=== PATIENT | male | born 1940 | race Caucasian/White ===

== ENCOUNTER 2016-11-17 11:25 | Emergency (ER) | payer MEDICARE ==
[2016-11-17] MEDS ORDERED: IPRATROPIUM/ALBUTEROL 0.5-2.5 MG/3 ML AMPUL NEB ONE (12:26)
--- NOTE | 2016-11-17 12:28 | ER Document Report ---
ED Medical Screen (RME) - General Chief Complaint: Shortness Of Breath Stated Complaint: COUGH,SHORTNESS OF BREATH Time seen by provider: 12:25 Mode of Arrival: Wheelchair Information source: Patient TRAVEL OUTSIDE OF THE [place] IN LAST 30 DAYS: No - HPI Patient complains to provider of: fever, cough Onset: Other - 3-4 days Onset/Duration: Gradual, Persistent Quality of pain: Achy Severity: Moderate Pain Level: 3 Associated Symptoms: Body/muscle aches, Chills, Cough (productive), Fever, Nausea, Shortness of breath Exacerbated by: Movement, Coughing, Deep breathing Relieved by: Denies Similar symptoms previously: No Recently seen / treated by doctor: Yes - sent from PMD Notes: 11/17/16 12:26 Patient is 76-year-old male with history of coronary artery disease, [place] 2, diabetes, hypertension, who presents to the emergency room with a productive cough 3-4 days and a fever of 103 yesterday evening, as well as shortness of breath, and nausea, he was sent from his primary care provider's office to rule out pneumonia - Related Data Allergies/Adverse Reactions: No Known Allergies Allergy (Unverified 11/17/16 11:35) Past Medical History Renal/ Medical History: Denies: Hx Peritoneal Dialysis Physical Exam - Vital signs Vitals: Temp Pulse Resp BP Pulse Ox 98.5 F 114 H 22 H 115/79 96 11/17/16 11:32 11/17/16 11:32 11/17/16 11:32 11/17/16 11:32 11/17/16 11:32 Course - Vital Signs Vital signs: Temp Pulse Resp BP Pulse Ox 98.5 F 114 H 22 H 115/79 96 11/17/16 11:32 11/17/16 11:32 11/17/16 11:32 11/17/16 11:32 11/17/16 11:32
--- NOTE | 2016-11-17 12:44 | ER Document Report ---
ED Respiratory Problem - General Chief Complaint: Shortness Of Breath Stated Complaint: COUGH,SHORTNESS OF BREATH Mode of Arrival: Wheelchair Information source: Patient TRAVEL OUTSIDE OF THE [place] IN LAST 30 DAYS: No - HPI Patient complains to provider of: Cough Onset: Other - 3 DAYS Duration: Intermittent episodes Initiating Event: URI Quality of pain: Other - SORENESS Severity: Moderate Context: denies: Hx asthma, Hx CHF, Hx COPD, Recent cardiac event, Recent long distance trvl, Recent immobilization, Recent surgery, Smoker Chest pain/discomfort: Worse with deep breaths - COSTAL MARGINS Cough: Productive Sputum amount: Moderate Sputum color: Green Sputum consistency: Mucoid Associated symptoms: Chills, Cough, Extertional dyspnea, Fever, Orthopnea, Sweaty Similar symptoms previously: Yes - W/ PNEUMONIA Recently seen / treated by doctor: Yes - PCP, THIS A.M., REFERRED TO E.D. - Related Data Allergies/Adverse Reactions: No Known Allergies Allergy (Unverified 11/17/16 11:35) Past Medical History - General Information source: Patient - Social History Smoking Status: Never Smoker Cigarette use (# per day): No Chew tobacco use (# tins/day): No Smoking Education Provided: No Frequency of alcohol use: None Drug Abuse: None Lives with: Spouse/Significant other Family History: Hypertension Patient has suicidal ideation: No Patient has homicidal ideation: No - Past Medical History Cardiac Medical History: Reports: Hx Coronary Artery Disease, Hx Hypertension Pulmonary Medical History: Reports: None EENT Medical History: Reports: None Neurological Medical History: Reports: None Endocrine Medical History: Reports: Hx Diabetes Mellitus Type 1 Renal/ Medical History: Reports: None. Denies: Hx Peritoneal Dialysis Malignancy Medical History: Reports None GI Medical History: Reports: None Musculoskeltal Medical History: Reports None Psychiatric Medical History: Reports: None Surgical Hx: Negative Past Surgical History: Reports: Hx Pacemaker Review of Systems - Review of Systems Constitutional: Chills, Diaphoresis, Fever, Weakness EENT: No symptoms reported Cardiovascular: No symptoms reported Respiratory: See HPI Gastrointestinal: No symptoms reported Genitourinary: No symptoms reported Musculoskeletal: No symptoms reported Skin: No symptoms reported Neurological/Psychological: No symptoms reported Physical Exam - Vital signs Vitals: Temp Pulse Resp BP Pulse Ox 98.5 F 114 H 22 H 115/79 96 11/17/16 11:32 11/17/16 11:32 11/17/16 11:32 11/17/16 11:32 11/17/16 11:32 Interpretation: Tachycardic, Tachypneic. No: Hypoxic, Febrile - General General appearance: Appears well, Alert In distress: None - HEENT Head: Normocephalic Eyes: Normal Conjunctiva: Normal Ears: Normal Nasal: Normal Mouth/Lips: Normal Mucous membranes: Normal Pharynx: Normal Neck: Normal - Respiratory Respiratory status: No respiratory distress Breath sounds: Rhonchi - INSPIRATORY, Wheezing - MILD EXP., ALL DIEZ - Cardiovascular Rhythm: Regular, Tachycardia Heart sounds: Normal auscultation Murmur: No - Abdominal Inspection: Normal Distension: No distension Bowel sounds: Normal - Back Back: Normal - Extremities General upper extremity: Normal inspection General lower extremity: Normal inspection - Neurological Neuro grossly intact: Yes Cognition: Normal Orientation: AAOx4 - Psychological Associated symptoms: Normal affect, Normal mood - Skin Skin Temperature: Warm Skin Moisture: Dry Skin Color: Normal Skin Turgor: Elastic Course - Vital Signs Vital signs: Temp Pulse Resp BP Pulse Ox 98.4 F 114 H 21 H 125/86 H 94 11/17/16 17:01 11/17/16 11:32 11/17/16 17:01 11/17/16 17:01 11/17/16 17:01 - Laboratory Result Diagrams: 11/17/16 12:35 11/17/16 12:35 Laboratory results interpreted by me: 11/17/16 11/17/16 11/17/16 12:15 12:35 12:35 RDW 15.5 H Plt Count 111 L Lymphocytes % 11.3 L BUN 29 H Creatinine 1.54 H Est GFR ( Amer) 53 L Est GFR (Non-Af Amer) 44 L Glucose 161 H POC Glucose 148 H Total Bilirubin 1.5 H Direct Bilirubin 0.6 H Alkaline Phosphatase 199 H Urine Glucose (UA) Urine Blood 11/17/16 15:50 RDW Plt Count Lymphocytes % BUN Creatinine Est GFR ( Amer) Est GFR (Non-Af Amer) Glucose POC Glucose Total Bilirubin Direct Bilirubin Alkaline Phosphatase Urine Glucose (UA) 50 H Urine Blood MODERATE H - Diagnostic Test Radiology reviewed: Image reviewed, Reports reviewed - EKG Interpretation by Me EKG shows normal: abnormal: Sinus rhythm - PACER, QRS Complexes Rate: Normal [place]/QRS: LBBB Discharge - Discharge Clinical Impression: Pneumonia Qualifiers: Pneumonia type: due to unspecified organism Laterality: left Lung location: lower lobe of lung Qualified Code(s): J18.1 - Lobar pneumonia, unspecified organism Chronic renal insufficiency Qualifiers: Chronic kidney disease stage: unspecified stage Qualified Code(s): N18.9 - Chronic kidney disease, unspecified Condition: Stable Disposition: HOME, SELF-CARE Instructions: Pneumonia ([facility]), Intravenous (IV) Fluids ([facility]), Rocephin ([facility]), Azithromycin ([facility]), Inhaled Bronchodilators ([facility]) Additional Instructions: REST, DRINK PLENTY OF FLUIDS. MEDS DIRECTED. FOLLOW UP WITH YOUR PRIMARY CARE PROVIDER IN 3-5 DAYS. RETURN TO E.R. IF YOU GET WORSE, ANY TIME. Prescriptions: Albuterol Sulfate [Proair HFA] 2 inh IH Q4 PRN #1 [email or web address] PRN Reason: For Wheezing Azithromycin [Zithromax 250 mg Tablet] 250 mg PO ASDIR PRN #6 tablet PRN Reason: Referrals: DORY ALMONTE, R[facility] [Primary Care Provider] - Follow up in 3-5 days
[2016-11-17 13:08] LABS: ABSOLUTE LYMPHOCYTES (AUTO) 0.9 10^3/uL (0.5-4.7); ABSOLUTE MONOCYTES (AUTO) 0.9 10^3/uL (0.1-1.4); ABSOLUTE NEUT (AUTO) 6.4 10^3/uL (1.7-8.2); BASOPHILS % (AUTO) 0.4 % (0-2); EOSINOPHILS % (AUTO) 0.2 % (0-6); HEMATOCRIT 43.2 % (37.9-51.0); HEMOGLOBIN 14.7 g/dL (13.5-17.0); HGB HCT DIFFERENCE 0.9; LYMPHOCYTES % (AUTO) 11.3 % (13-45); MEAN CORPUSCULAR HEMOGLOBIN 30.2 pg (27.0-33.4); MEAN CORPUSCULAR VOLUME 89 fl (80-97); MONOCYTES % (AUTO) 10.4 % (3-13); RED BLOOD COUNT 4.86 10^6/uL (4.35-5.55); RED CELL DISTRIBUTION WIDTH 15.5 % (11.5-14.0); SEGMENTED NEUTROPHILS % (AUTO) 77.7 % (42-78); WHITE BLOOD COUNT 8.2 10^3/uL (4.0-10.5)
[2016-11-17] MEDS ORDERED: DEXAMETHASONE SOD PHOS INJ 10 MG/1 ML VIAL IV ONE (13:11)
[2016-11-17] MEDS ORDERED: ALBUTEROL SULFATE 0.083% NEB 2.5 MG/3 ML AMPUL NEB ONE (13:17)
--- NOTE | 2016-11-17 13:24 | EKG REPORT ---
SEVERITY:- ABNORMAL ECG - AFIB/FLUT AND V-PACED COMPLEXES LEFT BUNDLE BRANCH BLOCK : Confirmed by: Kathryn Bañuelos MD 17-Nov-2016 13:23:28
[2016-11-17 13:33] LABS: ALANINE AMINOTRANSFERASE 37 U/L (21-72); ALBUMIN 4.3 g/dL (3.5-5.0); ALKALINE PHOSPHATASE 199 U/L (38-126); ANION GAP 14 (5-19); ASPARTATE AMINO TRANSFERASE 33 U/L (17-59); BILIRUBIN,DIRECT 0.6 mg/dL (0.0-0.4); BILIRUBIN,TOTAL 1.5 mg/dL (0.2-1.3); BLOOD UREA NITROGEN 29 mg/dL (7-20); CALCIUM 9.6 mg/dL (8.4-10.2); CARBON DIOXIDE 26 mmol/L (22-30); CHLORIDE 98 mmol/L (98-107); CREATINE KINASE 169 U/L (55-170); CREATININE RESULT 1.54 mg/dL (0.52-1.25); GLUCOSE 161 mg/dL (75-110); POTASSIUM 4.5 mmol/L (3.6-5.0); SODIUM 137.7 mmol/L (137-145); TOTAL PROTEIN 7.7 g/dL (6.3-8.2)
[2016-11-17 13:41] LABS: CREATINE KINASE MB 1.13 ng/mL (<4.55)
[2016-11-17 13:42] LABS: TROPONIN I < 0.012 ng/mL
[2016-11-17] MEDS ORDERED: CEFTRIAXONE 1 GM/D5W RTU 50 ML IV ONE (14:15)
[2016-11-17] MEDS ORDERED: NORMAL SALINE 1000 ML 1,000 ML IV ONE (14:34)
[2016-11-17 17:10] LABS: APPEARANCE,URINE CLEAR; BILIRUBIN,URINE NEGATIVE (NEGATIVE); GLUCOSE, URINE 50 mg/dL (NEGATIVE); KETONES,URINE NEGATIVE (NEGATIVE); LEUKOCYTE ESTERASE,URINE NEGATIVE (NEGATIVE); NITRITE,URINE NEGATIVE (NEGATIVE); PROTEIN,URINE NEGATIVE (NEGATIVE); URINE SPECIFIC GRAVITY 1.008; UROBILINOGEN,URINE NEGATIVE mg/dL (<2.0)
[2016-11-17 17:11] VITALS: BP 125/86
== END 2016-11-17 17:18 | disposition home or self-care (01) ==
LOC: ER 11:25
DX: J18.1 Lobar pneumonia, unspecified organism (principal); I12.9 Hypertensive chronic kidney disease with stage 1 through stage 4 chronic kidney disease, or unspecified chronic kidney disease; E10.22 Type 1 diabetes mellitus with diabetic chronic kidney disease; N18.9 Chronic kidney disease, unspecified; I44.7 Left bundle-branch block, unspecified; I25.10 Atherosclerotic heart disease of native coronary artery without angina pectoris; R05 Cough; R61 Generalized hyperhidrosis; R06.01 Orthopnea; R53.1 Weakness; R50.9 Fever, unspecified; R00.0 Tachycardia, unspecified; Z95.0 Presence of cardiac pacemaker
CPT/HCPCS: 93005; 94640 ×2; 99285; 96365; 36415; 87040; 87070; 87086; 87205; 82553; 82962; 82550; 85025; 87077; 87088; 80053; 81001; 84484; 87186; 83605; 71020; 93010; J7030; J0696; A9270 ×2; J7620

== ENCOUNTER → 2017-01-05 | Outpatient (CLI) | payer MEDICARE ==
--- NOTE | 2017-01-05 11:15 | RADIOLOGY REPORT (SQ) ---
EXAM DESCRIPTION: CHEST PA/LATERAL COMPLETED DATE/TIME: 01/05/2017 10:56 am REASON FOR STUDY: PNEUMONIA, UNSPECIFIED ORGANISM COMPARISON: 11/17/2016 EXAM PARAMETERS: NUMBER OF VIEWS: two views TECHNIQUE: Digital Frontal and Lateral radiographic views of the chest acquired. RADIATION DOSE: NA LIMITATIONS: none FINDINGS: LUNGS AND PLEURA: There is mild subsegmental atelectasis in each lung. There is blunting of the left costophrenic angle. MEDIASTINUM AND HILAR STRUCTURES: No masses or contour abnormalities. HEART AND VASCULAR STRUCTURES: Heart normal size. No evidence for failure. BONES: No acute findings. HARDWARE: Pacemaker OTHER: No other significant finding. IMPRESSION: There may be a small left pleural effusion. There is mild subsegmental atelectasis. No localized infiltrate is seen. TECHNICAL DOCUMENTATION: JOB ID: [id number] [employer]- All Rights Reserved
== END ==
LOC: OD 10:32
PROVIDERS: ATTEND Nurse Practitioner
DX: J18.9 Pneumonia, unspecified organism (principal)
CPT/HCPCS: 71020

== ENCOUNTER → 2017-01-29 | Outpatient (CLI) | payer MEDICARE ==
[2017-01-29 08:41] LABS: ALBUMIN 3.9 g/dL (3.5-5.0); ANION GAP 10 (5-19); BLOOD UREA NITROGEN 28 mg/dL (7-20); CALCIUM 9.4 mg/dL (8.4-10.2); CARBON DIOXIDE 27 mmol/L (22-30); CHLORIDE 104 mmol/L (98-107); CREATININE RESULT 1.47 mg/dL (0.52-1.25); GLUCOSE 158 mg/dL (75-110); PHOSPHORUS 3.7 mg/dL (2.5-4.5); POTASSIUM 4.9 mmol/L (3.6-5.0); SODIUM 140.8 mmol/L (137-145)
[2017-01-30 09:38] LABS: CREATININE URINE 96.1 mg/dL (Not Estab.); MICROALBUMIN URINE 24.9 ug/mL (Not Estab.)
[2017-01-31 11:18] LABS: VITAMIN D 25-HYDROXY 28.9 ng/mL (30.0-100.0)
== END ==
LOC: LAB 08:01
PROVIDERS: ATTEND Internal Medicine Nephrology
DX: N18.3 Chronic kidney disease, stage 3 (moderate) (principal); E78.5 Hyperlipidemia, unspecified
CPT/HCPCS: 36415; 80048; 82040; 82043; 82306; 82570; 83970; 84100

== ENCOUNTER → 2017-01-29 | Outpatient (CLI) | payer MEDICARE ==
--- NOTE | 2017-01-29 08:29 | RADIOLOGY REPORT (SQ) ---
EXAM DESCRIPTION: U/S RETROPERITON (RENAL/AORTA) COMPLETED DATE/TIME: 01/29/2017 8:04 am REASON FOR STUDY: CKD III (N18.3) N18.3 CHRONIC KIDNEY DISEASE, STAGE 3 (MODERATE) COMPARISON: None. TECHNIQUE: Dynamic and static grayscale images acquired of the kidneys and bladder and recorded on P ACS. Additional selected color Doppler and spectral images recorded. LIMITATIONS: Large patient FINDINGS: RIGHT KIDNEY: 9.4 cm in length. Normal echogenicity. No solid or suspicious masses. No hy dronephrosis. No calcifications. Mild cortical thinning. LEFT KIDNEY: 9.6 cm in length. Normal echogenicity. No solid or suspicious masses. No hydronephrosis . No calcifications. Mild cortical thinning. BLADDER: No masses. OTHER FINDINGS: No other significant finding. IMPRESSION: Bilateral cortical thinning. No hydronephrosis. TECHNICAL DOCUMENTATION: JOB ID: [id number] [email or web address]- All Rights Reserved
== END ==
LOC: RAD 07:34
PROVIDERS: ATTEND Internal Medicine Nephrology
DX: N18.3 Chronic kidney disease, stage 3 (moderate) (principal)
CPT/HCPCS: 36415; 76770; 80048; 82040; 82043; 82306; 82570; 83970; 84100

== ENCOUNTER → 2018-07-06 | Outpatient (CLI) | payer MEDICARE ==
--- NOTE | 2018-07-06 09:37 | RADIOLOGY REPORT (SQ) ---
EXAM DESCRIPTION: CT ABD/PELVIS ORAL ONLY COMPLETED DATE/TIME: 07/06/2018 9:08 am REASON FOR STUDY: ABD PAIN (R10.9) R10.9 UNSPECIFIED ABDOMINAL PAIN COMPARISON: None. TECHNIQUE: CT scan of the abdomen and pelvis performed without intravenous or oral contrast. Images reviewed with lung, soft tissue, and bone windows. Reconstructed coronal and sagittal MPR images revi ewed. All images stored on PACS. All CT scanners at this facility use dose modulation, iterative reconstruction, and/or weight based d osing when appropriate to reduce radiation dose to as low as reasonably achievable (ALARA). [facility]: Dose Right [facility]: CareDose [facility]: Dose Right [facility]: Teradose 4D [facility]: Smart VUELOGIC RADIATION DOSE: CT Rad equipment meets quality standard of care and radiation dose reduction techniq ues were employed. CTDIvol: 7.6 mGy. DLP: 430 mGy-cm.mGy. LIMITATIONS: None. FINDINGS: LOWER CHEST: Pleural based and parenchymal nodules in the right middle lobe, axial images 1 and 3, series 4. Small bilateral pleural effusion and left base atelectasis. Very small right pl eural effusion and right base atelectasis. Mild bronchiectatic changes in the lower lobes. NON-CONTRASTED LIVER, SPLEEN, ADRENALS: Evaluation limited by lack of IV contrast. No identified sign ificant masses. PANCREAS: No masses. No peripancreatic inflammatory changes. GALLBLADDER: No identified stones by CT criteria. No inflammatory changes to suggest cholecystitis. RIGHT KIDNEY AND URETER: No suspicious masses. Assessment limited by lack of IV contrast. No signif icant calcifications. No hydronephrosis or hydroureter. LEFT KIDNEY AND URETER: Small nonobstructing 2- 3 mm calculus in the midpole of the left kidney. No suspicious masses. Assessment limited by lack of IV contrast. AORTA AND RETROPERITONEUM: Mild atherosclerotic changes involving the abdominal aorta and branch ves sels. IVC filter. No aneurysm. No retroperitoneal masses or adenopathy. BOWEL AND PERITONEAL CAVITY: Colonic diverticulosis without evidence of diverticulitis. No free flu id. APPENDIX: Normal. PELVIS, BLADDER, AND ABDOMINAL WALL: The prostate gland measures 4.6 cm in diameter. Prostatic conc retions. Fat containing right umbilical and inguinal hernias. No free fluid. Bladder normal. BONES: Dextroconvex scoliosis and degenerative changes of the lumbar spine. OTHER: Small hiatal hernia. IMPRESSION: 1. Small nonobstructing left renal calculus. 2. Colonic diverticulosis without evidence of diverticulitis. 3. Small fat containing umbilical and right inguinal hernias. 4. Pleural based and parenchymal nodules in the right middle lobe. Small bilateral pleural effusions and atelectatic changes at the lung bases. Further evaluation with CT with IV contrast suggested. 5. Additional findings as above. COMMENT: Quality ID # [id number]: Final reports with documentation of one or more dose reduction techniques (e.g., Automated exposure control, adjustment of the mA and/or kV according to patient size, use of iterative reconstruction technique) TECHNICAL DOCUMENTATION: JOB ID: [id number] [employer]- All Rights Reserved Reading location - IP/workstation name: [email or web address]
== END ==
LOC: RAD 07:56
PROVIDERS: ATTEND Surgery
DX: R10.9 Unspecified abdominal pain (principal); K44.9 Diaphragmatic hernia without obstruction or gangrene; M41.86 Other forms of scoliosis, lumbar region
CPT/HCPCS: 74176; 82565